=== PATIENT | female | born 1975 | race Caucasian/White ===

== ENCOUNTER 2017-10-25 20:50 | Emergency (ER) | payer OTHER ==
[2017-10-25] MEDS ORDERED: IOHEXOL 300 MG/ML 75 ML VIAL. IV ONE (22:00)
[2017-10-25] MEDS ORDERED: ONDANSETRON PF 4 MG/2 ML VIAL. IV ONE (22:00)
[2017-10-25] MEDS ORDERED: IV RINGERS SOLUTION,LACTATED 1,000 ML IV SCH (22:00)
[2017-10-25 22:37] LABS: BILIRUBIN,URINE NEG (NEG); CLARITY,URINE CLEAR; COLOR,URINE YELLOW; GLUCOSE,URINE NEG (NEG)
[2017-10-25 22:38] LABS: BACTERIA,URINE 0 /HPF (0-FEW); NITRITE,URINE NEG (NEG); SQUAMOUS EPITHELIAL CELL,UR MOD /LPF; UROBILINOGEN,URINE 0.2 mg/dL (0.2 mg/dL)
[2017-10-25 22:41] LABS: BASO % 0 % (0-3); EOS # 0.3 x10^3/uL (0.0-0.7); EOS % 4 % (0-3); HEMATOCRIT 38.6 % (36.0-47.0); HEMOGLOBIN 13.1 g/dL (12.0-15.5); LYMPH # 1.4 x10^3/uL (1.0-4.8); LYMPH % 17 % (24-48); MEAN CORPUSCULAR HEMOGLOBIN 33 pg (25-35); MEAN CORPUSCULAR HGB CONC 34 g/dL (31-37); MEAN CORPUSCULAR VOLUME 99 fL (79-100); MONO # 0.8 x10^3/uL (0.0-1.1); MONO % 10 % (0-9); NEUT # 5.7 x10^3uL (1.8-7.7); NEUT % 69 % (31-73); PLATELET COUNT 342 x10^3/uL (140-400); RED BLOOD COUNT 3.91 x10^6/uL (3.50-5.40); RED CELL DISTRIBUTION WIDTH 12.4 % (11.5-14.5); WHITE BLOOD COUNT 8.3 x10^3/uL (4.0-11.0)
--- NOTE | 2017-10-25 22:49 | RAD ---
PQRS Compliance Statement: One or more of the following individualized dose reduction techniques were utilized for this examination: 1. Automated exposure control 2. Adjustment of the mA and/or kV according to patient size 3. Use of iterative reconstruction technique CT abdomen/pelvis with contrast 10/25/2017 9:26 PM INDICATION: Severe lower abdominal pain, nausea and diarrhea. History of Crohn's disease. COMPARISON: None available TECHNIQUE: Multiple axial CT images of the abdomen and pelvis were obtained after the intravenous administration of 75 mL Omnipaque 300. Coronal and sagittal reformats are provided. FINDINGS: Visualized portions of the lung bases are clear. Heart size is within normal limits. No suspicious hepatic masses are identified. Liver is homogeneous in enhancement. Spleen, bilateral adrenal glands, and pancreas are normal in appearance. Gallbladder is surgically absent. There is no intrahepatic or extrahepatic biliary ductal dilatation. The abdominal aorta is normal in course and caliber. There are no pathologically enlarged lymph nodes in the abdomen and pelvis. There is no abdominal free fluid. There is no free intraperitoneal air. The kidneys enhance symmetrically. There is no suspicious renal mass. There is no hydronephrosis. There are no suspected calculi within the kidneys, ureters or urinary bladder. Small and large bowel are normal in caliber. There is no evidence for bowel obstruction. There are no pericolonic inflammatory changes. A normal, nondilated appendix is visualized without adjacent inflammatory changes. The urinary bladder is within normal limits given degree of distention. Uterus is within normal limits. 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 Follicular changes are noted in the adnexa bilaterally. No suspicious pelvic masses are identified. There are no suspicious osseous lesions identified. IMPRESSION: No acute abnormality is identified in abdomen and pelvis. Specifically, no evidence for bowel obstruction or inflammation. Terminal ileum is normal in appearance. Appendix is normal. Follicular changes are noted in the adnexa. Suspect bilateral adnexal varices. Electronically signed by: Esther Blake MD (10/25/2017 10:46 PM) [facility]
[2017-10-25 22:54] LABS: ALBUMIN 3.6 g/dL (3.4-5.0); ALBUMIN/GLOBULIN RATIO 0.9 (1.0-1.7); CALCIUM 9.3 mg/dL (8.5-10.1); CREATININE 0.8 mg/dL (0.6-1.0); GFR 78.7; TOTAL BILIRUBIN 0.2 mg/dL (0.2-1.0); TOTAL PROTEIN 7.8 g/dL (6.4-8.2)
[2017-10-25] MEDS ORDERED: KETOROLAC 30 MG/ML VIAL. IV ONE (23:15)
[2017-10-25 23:30] VITALS: BP 144/80
[2017-10-25] MEDS ORDERED: Percogesic PO (23:37)
--- NOTE | 2017-10-25 23:38 | PHYS DOC ---
Past History Additional Past Medical Histor: Crohn's disease and sarcoidosis Adult General Chief Complaint Chief Complaint: ABDOMINAL PAIN HPI HPI Patient is a [42] year old [female] who presents with complaining of abdominal pain and diarrhea. Patient states she has had history of chronic dizziness for 3 years and sarcoidosis for several years but does not take any medication for Crohn's disease. Patient complaining of left lower quadrant pain for the last 3 days as a constant pain with radiation to. His area and rated her pain 10 over 10. Patient complaining of frequent episodes of diarrhea and a sensation 15 episodes of nonbloody diarrhea every day for the last 3 days. Patient complaining of nausea without vomiting and denies urinary symptom and fever and chills. Patient states she usually gets one episode of Crohn's exacerbation once a year without needs for hospitalization. Patient states she took Tylenol without improvement of her pain. She denies and vaginal bleeding or discharge. 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 Review of Systems Review of Systems Constitutional: Denies fever or chills [] Eyes: Denies change in visual acuity, redness, or eye pain [] HENT: Denies nasal congestion or sore throat [] Respiratory: Denies cough or shortness of breath [] Cardiovascular: No additional information not addressed in HPI [] GI: Reports abdominal pain, nausea, diarrhea [] : Denies dysuria or hematuria [] Musculoskeletal: Denies back pain or joint pain [] Integument: Denies rash or skin lesions [] Neurologic: Denies headache, focal weakness or sensory changes [] Endocrine: Denies polyuria or polydipsia [] All other systems were reviewed and found to be within normal limits, except as documented in this note. Current Medications Current Medications Current Medications Medications (Trade) Dose Ordered Sig/María Start Time Stop Time Status Last Admin Dose Admin Fentanyl Citrate (Fentanyl 2ml Vial) 50 mcg 1X ONCE 10/25/17 22:00 10/25/17 22:01 DC 10/25/17 22:19 50 MCG Iohexol (Omnipaque 300 Mg/ml) 75 ml 1X ONCE 10/25/17 22:00 10/25/17 22:01 DC 10/25/17 22:26 75 ML Ketorolac Tromethamine (Toradol) 30 mg 1X ONCE 10/25/17 23:15 10/25/17 23:16 DC 10/25/17 23:15 30 MG Lactated Ringer's 1,000 ml @ 1,000 mls/hr Q1H 10/25/17 22:00 10/25/17 23:00 DC 10/25/17 22:00 1,000 MLS/HR Ondansetron HCl (Zofran) 4 mg 1X ONCE 10/25/17 22:00 10/25/17 22:01 DC 10/25/17 22:18 4 MG Allergies Allergies Allergies Coded Allergies Type Severity Reaction Last Updated Verified codeine Allergy Unknown 10/25/17 Yes Physical Exam Physical Exam Constitutional: Well developed, well nourished, mild distress, non-toxic appearance. [] HENT: Normocephalic, atraumatic, oropharynx moist, no oral exudates, nose normal. [] Eyes: PERRLA, EOMI, conjunctiva normal, no discharge. [] Neck: Normal range of motion, no tenderness, supple, no stridor. [] Cardiovascular:Heart rate regular rhythm, no murmur [] Lungs & Thorax: Bilateral breath sounds clear to auscultation [] Abdomen: Bowel sounds normal, soft, left lower quadrant voluntary guarding, no tenderness, no masses, no pulsatile masses. [] Skin: Warm, dry, no erythema, no rash. [] Back: No tenderness, no CVA tenderness. [] Extremities: No tenderness, no cyanosis, no clubbing, ROM intact, no edema. [] Neurologic: Alert and oriented X 3, normal motor function, normal sensory function, no focal deficits noted. [] Psychologic: Affect normal, judgement normal, mood normal. [] Current Patient Data Vital Signs Vital Signs Date Time Temp Pulse Resp B/P (MAP) Pulse Ox O2 Delivery O2 Flow Rate FiO2 10/25/17 22:19 18 99 Room Air Lab Results Laboratory Tests Test 10/25/17 21:11 10/25/17 21:55 10/25/17 22:10 POC Urine HCG, Qualitative hcg negative (Negative) Urine Collection Type Unknown Urine Color Yellow Urine Clarity Clear Urine pH 7.5 Urine Specific [place] 1.020 Urine Protein Neg (NEG-TRACE) Urine Glucose (UA) Neg mg/dL (NEG) Urine Ketones (Stick) Neg mg/dL (NEG) Urine Blood Small (NEG) Urine Nitrite Neg (NEG) Urine Bilirubin Neg (NEG) Urine Urobilinogen Dipstick 0.2 mg/dL (0.2 mg/dL) Urine Leukocyte Esterase Neg (NEG) Urine RBC 3-5 /HPF (0-2) Urine WBC 1-4 /HPF (0-4) Urine Squamous Epithelial Cells Mod /LPF Urine Transitional Epithelial Cells Occ /LPF Urine Bacteria 0 /HPF (0-FEW) White Blood Count 8.3 x10^3/uL (4.0-11.0) Red Blood Count 3.91 x10^6/uL (3.50-5.40) Hemoglobin 13.1 g/dL (12.0-15.5) Hematocrit 38.6 % (36.0-47.0) Mean Corpuscular Volume 99 fL (79-100) Mean Corpuscular Hemoglobin 33 pg (25-35) Mean Corpuscular Hemoglobin Concent 34 g/dL (31-37) Red Cell Distribution Width 12.4 % (11.5-14.5) Platelet Count 342 x10^3/uL (140-400) Neutrophils (%) (Auto) 69 % (31-73) Lymphocytes (%) (Auto) 17 % (24-48) L Monocytes (%) (Auto) 10 % (0-9) H Eosinophils (%) (Auto) 4 % (0-3) H Basophils (%) (Auto) 0 % (0-3) Neutrophils # (Auto) 5.7 x10^3uL (1.8-7.7) Lymphocytes # (Auto) 1.4 x10^3/uL (1.0-4.8) Monocytes # (Auto) 0.8 x10^3/uL (0.0-1.1) Eosinophils # (Auto) 0.3 x10^3/uL (0.0-0.7) Basophils # (Auto) 0.0 x10^3/uL (0.0-0.2) Sodium Level 137 mmol/L (136-145) Potassium Level 4.0 mmol/L (3.5-5.1) Chloride Level 103 mmol/L (98-107) Carbon Dioxide Level 25 mmol/L (21-32) Anion Gap 9 (6-14) Blood Urea Nitrogen 7 mg/dL (7-20) Creatinine 0.8 mg/dL (0.6-1.0) Estimated GFR (Cockcroft-Gault) 78.7 BUN/Creatinine Ratio 9 (6-20) Glucose Level 107 mg/dL (70-99) H Lactic Acid Level 1.3 mmol/L (0.4-2.0) Calcium Level 9.3 mg/dL (8.5-10.1) Total Bilirubin 0.2 mg/dL (0.2-1.0) Aspartate Amino Transferase (AST) 26 U/L (15-37) Alanine Aminotransferase (ALT) 49 U/L (14-59) Alkaline Phosphatase 93 U/L (46-116) Total Protein 7.8 g/dL (6.4-8.2) Albumin 3.6 g/dL (3.4-5.0) Albumin/Globulin Ratio 0.9 (1.0-1.7) L Lipase 220 U/L (73-393) EKG EKG [] Radiology/Procedures Radiology/Procedures [][address] [address] IMAGING REPORT Signed PATIENT: JEANNE OLVERA ACCOUNT: [id number] : 1975 LOCATION: ER AGE: 42 SEX: F EXAM STATUS: REG ER ORD. PHYSICIAN: MONTY DOOLEY MD REASON: abdominal pain, Crohn's disease PROCEDURE: CT ABD PELV W/ IV CONTRST ONLY PQRS Compliance Statement: One or more of the following individualized dose reduction techniques were utilized for this examination: 1. Automated exposure control 2. Adjustment of the mA and/or kV according to patient size 3. Use of iterative reconstruction technique CT abdomen/pelvis with contrast 10/25/2017 9:26 PM INDICATION: Severe lower abdominal pain, nausea and diarrhea. History of Crohn's disease. COMPARISON: None available TECHNIQUE: Multiple axial CT images of the abdomen and pelvis were obtained after the intravenous administration of 75 mL Omnipaque 300. Coronal and sagittal reformats are provided. FINDINGS: Visualized portions of the lung bases are clear. Heart size is within normal limits. No suspicious hepatic masses are identified. Liver is homogeneous in enhancement. Spleen, bilateral adrenal glands, and pancreas are normal in appearance. Gallbladder is surgically absent. There is no intrahepatic or extrahepatic biliary ductal dilatation. The abdominal aorta is normal in course and caliber. There are no pathologically enlarged lymph nodes in the abdomen and pelvis. There is no abdominal free fluid. There is no free intraperitoneal air. The kidneys enhance symmetrically. There is no suspicious renal mass. There is no hydronephrosis. There are no suspected calculi within the kidneys, ureters or urinary bladder. Small and large bowel are normal in caliber. There is no evidence for bowel obstruction. There are no pericolonic inflammatory changes. A normal, nondilated appendix is visualized without adjacent inflammatory changes. The urinary bladder is within normal limits given degree of distention. Uterus is within normal limits. 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 Follicular changes are noted in the adnexa bilaterally. No suspicious pelvic masses are identified. There are no suspicious osseous lesions identified. IMPRESSION: No acute abnormality is identified in abdomen and pelvis. Specifically, no evidence for bowel obstruction or inflammation. Terminal ileum is normal in appearance. Appendix is normal. Follicular changes are noted in the adnexa. Suspect bilateral adnexal varices. Electronically signed by: Kerrie Blake MD (10/25/2017 10:46 PM) [facility] DICTATED AND SIGNED BY: KERRIE BLAKE MD DATE: 10/25/172238 CC: MONTY DOOLEY MD; PCP,NO ~ Course & Med Decision Making Course & Med Decision Making Pertinent Labs and Imaging studies reviewed. (See chart for details) Evaluation of patient in ER showed 42-year-old female patient with complaining of abdominal pain and nausea and frequent episodes of diarrhea with history of chronic dizziness without taking any medication for Crohn's. Patient had unremarkable physical exam except for anxiety and left lower quadrant voluntary guarding. Labs and CT of abdomen and pelvis was unremarkable. Patient treated with IV fluid and Zofran and fentanyl and stated her pain did not change and asking for another dose of fentanyl. Patient is not taking any distress and Toradol was ordered and informed to follow-up with a primary care physician and follow-up with liquid diet. Dragon Disclaimer Dragon Disclaimer This electronic medical record was generated, in whole or in part, using a voice recognition dictation system. Departure Departure: Impression: Primary Impression: Abdominal pain Additional Impression: Diarrhea Disposition: HOME, SELF-CARE (at 2335) Condition: STABLE Referrals: PCP,NO (PCP) Patient Instructions: Abdominal Pain, Diarrhea, Diet for Diarrhea, Adult Additional Instructions: Drink plenty of liquids Follow-up with your primary care physician in 2-3 days Return to ER if not getting better Scripts [Percogesic] No Conflict Check 1 TAB PO QID PRN for PAIN, #14 Prov: MONTY DOOLEY MD 10/25/17 Problem Qualifiers MONTY DOOLEY MD Oct 25, 2017 23:37
== END 2017-10-26 | disposition home or self-care (01) ==
LOC: ER 20:50
DX: R19.7 Diarrhea, unspecified (principal); R10.32 Left lower quadrant pain; K50.90 Crohn's disease, unspecified, without complications; Z88.5 Allergy status to narcotic agent
CPT/HCPCS: 36415; 74177; 80053; 81001; 81025; 83605; 83690; 85025; 96361; 96374; 96375; 99285; J1885; J2405; J3010; J7120; Q9967